=== PATIENT | female | born 1950 | race Caucasian/White ===

== ENCOUNTER 2017-06-08 10:33 | Outpatient (CLI) | payer MEDICARE, OTHER | END 2017-06-08 23:59 | disposition home or self-care (01) | LOC: RAD 10:33 | PROVIDERS: ATTEND Internal Medicine Rheumatology | DX: Z13.820 Encounter for screening for osteoporosis (principal); I49.9 Cardiac arrhythmia, unspecified; R06.00 Dyspnea, unspecified | CPT/HCPCS: 71046; 93005 ==

== ENCOUNTER 2022-07-07 08:35 | Outpatient (CLI) | payer MEDICARE, OTHER | END 2022-07-07 23:59 | disposition home or self-care (01) | LOC: RAD 08:35 | PROVIDERS: ATTEND Internal Medicine Cardiovascular Disease | DX: I08.8 Other rheumatic multiple valve diseases (principal); R06.02 Shortness of breath | CPT/HCPCS: 93306 ==

== ENCOUNTER 2023-05-09 08:36 | Emergency (ER) | payer MEDICARE, OTHER ==
[~2023-05-09] VITALS: Ht 162.6 cm; Wt 75.2 kg
[2023-05-09 08:43] VITALS: BP 189/98; PULSE 66; TEMP 98.7; O2SAT 98
[2023-05-09] MEDS ORDERED: ketorolac trometh inj. 60 MG/2 ML VIAL IM ONE (11:10)
[2023-05-09] MEDS ORDERED: PRED20TA PO (11:12)
[2023-05-09] MEDS ORDERED: CYCL-1 PO (11:12)
[2023-05-09 11:25] VITALS: RESP 18
== END 2023-05-09 11:29 | disposition home or self-care (01) ==
LOC: ER 08:38
DX: S70.01XA Contusion of right hip, initial encounter (principal); X58.XXXA Exposure to other specified factors, initial encounter; Y93.89 Activity, other specified; Y92.89 Other specified places as the place of occurrence of the external cause; Y99.8 Other external cause status
CPT/HCPCS: 96372; 99283; J1885